=== PATIENT | male | born 1990 ===

== ENCOUNTER 2018-04-20 14:00 | Emergency (ER) | payer OTHER ==
[2018-04-20 15:34] VITALS: RESP 16; TEMP 97.8; O2SAT 97
--- NOTE | 2018-04-20 16:35 | ED PDOC ---
HPI: Eye Injury/Pain Time Seen by Provider: 04/20/18 15:09 Chief Complaint (Nursing): Eye Problem Chief Complaint (Provider): Left Eye Blindness History Per: Patient History/Exam Limitations: no limitations Onset/Duration Of Symptoms: Days Current Symptoms Are (Timing): Still Present Associated Symptoms: Decreased Vision Additional Complaint(s): 27 year old male with no significant PMHx presents to the ER with left eye blindness for the past 2 months. Approximately, two months ago, one of his children noted a different eye color. Patient noticed he has progressive decrease in vision and was unable to see from his left eye. He admits to occasional twinges of pain in his head that are fleeting. Patient was seen in eap consultant 40 days and was told there's a cataract in his eye but has not heard anything further and is unable to reach to anyone so he presents here today to see if anything could be done. Denies eye pain, trauma, injury dizziness or headache. Past Medical History Reviewed: Historical Data, Nursing Documentation, Vital Signs Vital Signs: Last Vital Signs Temp 97.8 F 04/20/18 15:30 Pulse 77 04/20/18 15:30 Resp 16 04/20/18 15:30 BP 125/78 04/20/18 15:30 Pulse Ox 97 04/20/18 15:30 - Medical History PMH: No Chronic Diseases - Family History Family History: States: Unknown Family Hx - Social History Current smoker - smoking cessation education provided: No Alcohol: None Drugs: Denies - Allergies Allergies/Adverse Reactions: Allergies Allergy/AdvReac Type Severity Reaction Status Date / Time No Known Allergies Allergy Verified 04/20/18 15:58 Review of Systems ROS Statement: Except As Marked, All Systems Reviewed And Found Negative Eyes: Negative for: Pain, Redness Neurological: Negative for: Headache, Dizziness Physical Exam - Reviewed Nursing Documentation Reviewed: Yes Vital Signs Reviewed: Yes - Physical Exam Appears: Positive for: Well, Non-toxic, No Acute Distress Head Exam: Positive for: ATRAUMATIC, NORMAL INSPECTION, NORMOCEPHALIC Skin: Positive for: Normal Color, Warm, Dry. Negative for: Rash Eye Exam: Negative for: Normal appearance (Left eye with white film within pupil, no red reflux) ENT: Positive for: Normal ENT Inspection. Negative for: Pharyngeal Erythema Neck: Positive for: Normal, Painless ROM, Supple Cardiovascular/Chest: Positive for: Regular Rate, Rhythm. Negative for: Murmur Respiratory: Positive for: Normal Breath Sounds. Negative for: Decreased Breath Sounds, Wheezing, Respiratory Distress Neurologic/Psych: Positive for: Alert, Oriented (x3). Negative for: Motor/Sensory Deficits (equal strength bilateral extremities ) - ECG O2 Sat by Pulse Oximetry: 97 (RA) Pulse Ox Interpretation: Normal Medical Decision Making Medical Decision Making: Time: 1509 Patient advised that he appears to have cataract given lack of eye pain and neurological symptoms. No immediate need for testing in ED. Given referral to eap consultant and [facility] for further assistance. Upon provider evaluation patient is medically stable, and requires no further treatment in the ED at this time. Patient will be discharged home. Counseling was provided and all questions were answered regarding diagnosis and need for follow up with eap consultant. There is agreement to discharge plan. Return if symptoms persist or worsen. ----- Scribe Attestation: Documented by Betsy Crawford, acting as a scribe for Xochitl Dey PA-C Provider Scribe Attestation: All medical record entries made by the Scribe were at my direction and personally dictated by me. I have reviewed the chart and agree that the record accurately reflects my personal performance of the history, physical exam, medical decision making, and the department course for this patient. I have also personally directed, reviewed, and agree with the discharge instructions and disposition. Disposition - Clinical Impression Clinical Impression: Eye abnormality - Patient ED Disposition Is Patient to be Admitted: No - Disposition Referrals: [facility] [Outside] Napoleon Rodriguez MD [Staff Provider] - Disposition: Routine/Home Disposition Time: 16:11 Condition: STABLE Additional Instructions: Please call [facility] to assist you in making an appointment with the eap consultant. Return to ER if you develop eye pain, dizziness, headaches, trouble walking. Print Language: GERMAN
[2018-04-20 17:27] VITALS: BP 123/81; PULSE 76
== END 2018-04-20 16:00 | disposition home or self-care (01) ==
LOC: H.ER 14:00
DX: H54.62 Unqualified visual loss, left eye, normal vision right eye (principal)